=== PATIENT | female | born 1985 | race Hispanic/Latino ===

== ENCOUNTER 2021-06-23 05:57 | Day surgery (SDC) | payer OTHER ==
[2021-06-20 10:39] LABS: BASOPHILS % (AUTO) 0.3 % (0.0-5.0); HEMATOCRIT 43.3 % (36-48); LYMPHOCYTES % (AUTO) 36.5 % (21.0-51.0); MEAN CORPUSCULAR HEMOGLOBIN 31.5 pg (27.0-33.0); MEAN CORPUSCULAR HGB CONC 34.6 g/dL (32.0-36.0); MONOCYTES % (AUTO) 7.8 % (3.0-13.0); NEUTROPHILS % (AUTO) 53.9 % (40.0-77.0); PLATELET COUNT (AUTO) 270 K/uL (130-400); RED BLOOD CELL COUNT(AUTO) 4.76 MIL/uL (4.00-5.50); RED CELL DISTRIBUTION WIDTH 12.5 % (11.0-15.5); WHITE BLOOD COUNT (AUTO) 6.3 K/uL (4.8-10.8)
[2021-06-20 10:58] LABS: CREATININE 0.7 mg/dL (0.5-1.5); POTASSIUM 3.8 mmol/L (3.5-5.1)
[2021-06-20 12:33] VITALS: BP 117/82
[2021-06-23] VITALS (16 sets, daily range): BP systolic 111–128; BP diastolic 60–85
[~2021-06-23] VITALS: Ht 157.5 cm; Wt 70.3 kg
[~2021-06-23 05:57] MED LIST: ACET325C6 PO; CYCL-309 PO; MELA3TAB41 PO; PREG100C PO
[2021-06-23] MEDS ORDERED: LACTATED RINGERS 1000ML 1,000 ML IV ONE (06:13)
[2021-06-23] MEDS: CEFAZOLIN SODIUM 1 GM VIAL ONE ×2 (06:36→08:42)
[2021-06-23] MEDS ORDERED: FAMOTIDINE 20MG VIAL IV ONE (07:22)
[2021-06-23] MEDS ORDERED: PROPOFOL 10 MG/ML 20ML VIAL IV ONE ×2 (07:36→09:16)
[2021-06-23] MEDS ORDERED: GLYCOPYRROLATE 1 MG/5 ML SYRINGE ONE (07:36)
[2021-06-23] MEDS ORDERED: FENTANYL CITRATE PF 50 MCG/1 ML 2ML VIAL ONE ×2 (07:37→09:38)
[2021-06-23] MEDS ORDERED: ROCURONIUM 10MG/1ML SYR 10 MG/ML ML ONE (07:37)
[2021-06-23] MEDS ORDERED: LIDOCAINE PF 100MG/5ML (2%) SYRINGE 5ML ONE (07:39)
[2021-06-23] MEDS ORDERED: PHENYLEPHRINE HCL 10 MG/ML 1ML VIAL IV ONE (07:40)
[2021-06-23] MEDS ORDERED: CEFAZOLIN SODIUM 1 GM VIAL ONE ×2 (08:08→10:28)
[2021-06-23] MEDS ORDERED: ONDANSETRON 4MG INJ ONE ×2 (08:37→09:16)
[2021-06-23] MEDS ORDERED: BUPIVACAINE/PF 0.5% 30ML VIAL ONE (08:45)
[2021-06-23] MEDS ORDERED: NEOSTIGMINE 5MG/5ML SYR IV ONE (09:07)
[2021-06-23] MEDS ORDERED: CEPH500B PO (09:41)
[2021-06-23] MEDS ORDERED: ACET-2079 PO (09:41)
[2021-06-23] MEDS ORDERED: TRANEXAMIC ACID 1000MG/10ML ONE (10:28)
== END 2021-06-23 11:15 | disposition home or self-care (01) ==
LOC: DAH 05:57
PROVIDERS: ATTEND Orthopaedic Surgery
DX: G56.03 Carpal tunnel syndrome, bilateral upper limbs (principal); Z20.822 Contact with and (suspected) exposure to COVID-19; K21.9 Gastro-esophageal reflux disease without esophagitis; Z98.890 Other specified postprocedural states; Z79.899 Other long term (current) drug therapy
CPT/HCPCS: 36415; 64721; 80048; 84703; 85025; 87635; A4215 ×2; A4221; A4222; A4223; A4565; A4649; A4663; A4930; A5120; A6223; C9803; J0690 ×3; J2001; J2370; J2405 ×2; J2704 ×2; J2710; J3010 ×2; J3490 ×4; J7120

== ENCOUNTER 2021-07-30 06:37 | Day surgery (SDC) | payer OTHER ==
[2021-07-28 10:41] LABS: BASOPHILS % (AUTO) 0.5 % (0.0-5.0); EOSINOPHILS % (AUTO) 1.1 % (0.0-8.0); HEMATOCRIT 41.8 % (36-48); MEAN CORPUSCULAR HEMOGLOBIN 30.9 pg (27.0-33.0); MEAN CORPUSCULAR HGB CONC 32.5 g/dL (32.0-36.0); MONOCYTES % (AUTO) 6.1 % (3.0-13.0); PLATELET COUNT (AUTO) 242 K/uL (130-400); RED CELL DISTRIBUTION WIDTH 12.5 % (11.0-15.5); WHITE BLOOD COUNT (AUTO) 6.4 K/uL (4.8-10.8)
[2021-07-28 10:45] LABS: CREATININE 0.7 mg/dL (0.5-1.5); POTASSIUM 4.4 mmol/L (3.5-5.1)
[2021-07-29 10:18] VITALS: BP 120/88
[2021-07-30] VITALS (18 sets, daily range): BP systolic 92–114; BP diastolic 57–75
[~2021-07-30] VITALS: Ht 157.5 cm; Wt 73.7 kg
[2021-07-30] MEDS: CEFAZOLIN SODIUM 1 GM VIAL IVP SCH ×2 (06:00→08:43)
[~2021-07-30 06:37] MED LIST changes: -ACET325C6 PO; -CYCL-309 PO; +GABA-529 PO; -MELA3TAB41 PO; -PREG100C PO; +depo INJ
[2021-07-30] MEDS ORDERED: LACTATED RINGERS 1000ML 1,000 ML IV ONE (06:52)
[2021-07-30] MEDS ORDERED: DEXAMETHASONE SOD PHOSPHATE 10MG/ML 1ML VIAL ONE (07:44)
[2021-07-30] MEDS ORDERED: MIDAZOLAM HCL 1 MG/ML 2ML VIAL ONE (07:44)
[2021-07-30] MEDS ORDERED: FENTANYL CITRATE PF 50 MCG/1 ML 2ML VIAL ONE (07:44)
[2021-07-30] MEDS ORDERED: ONDANSETRON 4MG INJ ONE (07:44)
[2021-07-30] MEDS ORDERED: LIDOCAINE PF 100MG/5ML (2%) SYRINGE 5ML ONE (07:44)
[2021-07-30] MEDS ORDERED: SUCCINYLCHOLINE CHLORIDE 20 MG/ML 10 ML VIAL ONE (07:44)
[2021-07-30] MEDS ORDERED: PROPOFOL 10 MG/ML 20ML VIAL IV ONE (07:44)
[2021-07-30] MEDS ORDERED: EPHEDRINE SULFATE 50 MG/ML AMPULE ONE (07:45)
[2021-07-30] MEDS ORDERED: PHENYLEPHRINE HCL 10 MG/ML 1ML VIAL IV ONE (07:45)
[2021-07-30] MEDS ORDERED: BUPIVACAINE/PF 0.25% 10ML VIAL IJ ONE (07:48)
[2021-07-30] MEDS ORDERED: CEFAZOLIN SODIUM 1 GM VIAL ONE (08:45)
[2021-07-30] MEDS ORDERED: ESMOLOL HCL 10 MG/ML 10 ML VIAL ONE (08:50)
[2021-07-30] MEDS ORDERED: DEXMEDETOMIDINE HCL 200 MCG/2 ML VIAL IV ONE (08:59)
[2021-07-30] MEDS ORDERED: CEPH500B PO (09:26)
[2021-07-30] MEDS ORDERED: KETO10 PO (09:26)
[2021-07-30] MEDS ORDERED: TRAM50TA4 PO (11:37)
== END 2021-07-30 11:42 | disposition home or self-care (01) ==
LOC: DAH 06:37
PROVIDERS: ATTEND Orthopaedic Surgery
DX: G56.02 Carpal tunnel syndrome, left upper limb (principal); K21.9 Gastro-esophageal reflux disease without esophagitis; Z79.899 Other long term (current) drug therapy; Z82.49 Family history of ischemic heart disease and other diseases of the circulatory system; Z72.89 Other problems related to lifestyle; Z98.890 Other specified postprocedural states
CPT/HCPCS: 36415; 64721; 80048; 84703; 85025; 87635; A4215 ×2; A4221; A4222; A4223; A4565; A4649; A4663; A4930; A5120; A6223; C9803; J0330; J0690 ×2; J1100; J2001; J2250; J2370; J2405; J2704; J3010; J3490 ×4; J7120